=== PATIENT | male | born 1975 | race Caucasian/White ===

== ENCOUNTER 2019-02-25 18:21 | Emergency (ER) | payer SELFPAY ==
[~2019-02-25] VITALS: Ht 167.6 cm; Wt 64.9 kg
[2019-02-25 18:49] VITALS: BP 173/107
--- NOTE | 2019-02-25 18:56 | NUR ---
PT PLACED BACK IN LOBBY VIA WHEELCHAIR
--- NOTE | 2019-02-25 21:20 | NUR ---
PATIENT LEFT WITHOUT BEING SEEN BY DR. HERNANDEZ. NO FURTHER CARE PROVIDED FOR PATIENT.
== END 2019-02-25 21:20 | disposition left against medical advice (07) ==
LOC: MED 18:21
DX: M25.561 Pain in right knee (principal); Z53.21 Procedure and treatment not carried out due to patient leaving prior to being seen by health care provider